=== PATIENT | male | born 1955 | race Caucasian/White ===

== ENCOUNTER 2018-04-15 17:22 | Emergency (ER) | payer BC ==
[2018-04-15 17:49] VITALS: BP 156/82
--- NOTE | 2018-04-15 17:49 | UC ---
Dental HPI - HPI Summary HPI Summary: 62 yo male presents with dental pain. He tells me that over the past 2-3 months he has been trying to "handle" a dental infection on his left lower gum. Each time it gets an abscess he will take clindamycin with good relief. He saw his dentist 2 days ago and she put a temporary cap on the tooth with hopes that the infection would clear for her to put a permanent cap on. Since that time he has developed increased pain, swelling, and drainage from around the tooth. Is currently taking clindamycin. Denies fever, chills. Is able to eat and drink, but does have significant pain. - History of Current Complaint Chief Complaint: UCDentalProblem Stated Complaint: DENTAL COMPLAINT Time Seen by Provider: 04/15/18 17:49 Hx Obtained From: Patient Onset/Duration: Gradual Onset Severity: Severe Pain Intensity: 9 Pain Scale Used: 0-10 Numeric - Allergies/Home Medications Allergies/Adverse Reactions: Allergies Allergy/AdvReac Type Severity Reaction Status Date / Time No Known Allergies Allergy Verified 04/15/18 17:50 Home Medications: Home Medications Acetaminophen [Acetaminophen Extra Strength] 1,000 mg PO Q4HR PRN 04/15/18 [ History Confirmed 04/15/18] Clindamycin Cap(NF) [Clindamycin Cap 300 mg Cap(NF)] 300 mg PO TID 04/15/18 [ History Confirmed 04/15/18] Ibuprofen TAB* [Motrin TAB* 800 MG] 800 mg PO Q6H PRN 04/15/18 [History Confirmed 04/15/18] PMH/Surg Hx/FS Hx/Imm Hx Endocrine History: Hypothyroidism Cardiovascular History: Hypertension - Surgical History Surgical History: Yes Surgery Procedure, Year, and Place: thyroidectomy - Family History Known Family History: Positive: Hypertension - Social History Occupation: Employed Full-time Lives: With Family Alcohol Use: Daily Alcohol Amount: beer Substance Use Type: None Smoking Status (MU): Never Smoked Tobacco Review of Systems Constitutional: Negative Skin: Negative Eyes: Negative ENT: Dental Pain Respiratory: Negative Cardiovascular: Negative Neurovascular: Negative Neurological: Negative Psychological: Negative All Other Systems Reviewed And Are Negative: Yes Physical Exam - Summary Physical Exam Summary: GENERAL: NAD. WDWN. No pain distress. SKIN: No rashes, sores, lesions, or open wounds. HEENT: Head: AT/NC Nose: Nasal mucosa pink and moist. NTTP maxillary and frontal sinus. Throat: Posterior oropharynx without exudates, erythema, or tonsillar enlargement. Uvula midline. NECK: Supple. Nontender. No lymphadenopathy. CHEST: CTAB. No r/r/w. No accessory muscle use. Breathing comfortably and in no distress. CV: RRR. Without m/r/g. Pulses intact. Brisk cap refill. NEURO: Alert. CN II-XII grossly intact. PSYCH: Age appropriate behavior. Triage Information Reviewed: Yes Vital Signs: Initial Vital Signs Temp 98.9 F 04/15/18 17:36 Pulse 53 04/15/18 17:36 Resp 18 04/15/18 17:36 BP 156/82 04/15/18 17:36 Pulse Ox 100 04/15/18 17:36 Dental: Positive: Percussion Tenderness @ - Tooth 21, 22, 23, Abscess @ - Tooth 21, 22, 23, Bleeding - Tooth 21 Dental Complaint Course/Dx - Course Course Of Treatment: iSTOP: Reference #: [id number]. Dental abscess gum line Tooth 21, 22, 23. Continue clindamycin. Rx for tramadol and keep f/u with his dentist in 2 days. - Differential Dx/Diagnosis Provider Diagnoses: Dental abscess Discharge - Sign-Out/Discharge Documenting (check all that apply): Discharge/Admit/Transfer - Discharge Plan Condition: Stable Disposition: HOME Prescriptions: traMADol TAB* [Ultram*] 50 mg PO Q8H PRN #9 tab MDD 3 PRN Reason: Pain Patient Education Materials: Dental Abscess (ED) Referrals: Darlin Dickinson [Primary Care Provider] - Additional Instructions: If you develop a fever, shortness of breath, chest pain, new or worsening symptoms - please call your PCP or go to the ED. Your blood pressure was high at todays visit. Please see your primary provider within 4 weeks for recheck and re-evaluation. 1) Please continue taking your Clindamycin and follow up with your dentist on in 2 days - Billing Disposition and Condition Condition: STABLE Disposition: HOME
[2018-04-15] MEDS ORDERED: traMADol TAB* 50 MG PO ONE (18:07)
== END 2018-04-15 18:22 | disposition home or self-care (01) ==
LOC: UCCORT 17:22
DX: K04.7 Periapical abscess without sinus (principal); I10 Essential (primary) hypertension
CPT/HCPCS: 99213; A9270-GY; G0463

== ENCOUNTER 2019-05-29 10:04 | Emergency (ER) | payer BC ==
[2019-05-29 10:24] VITALS: BP 105/67
--- NOTE | 2019-05-29 10:40 | UC ---
UC General HPI - HPI Summary HPI Summary: L ear pain x 1 week. no uri, fever or drainage. has been using otc tx's. has been swimming. - History of Current Complaint Chief Complaint: UCEar Stated Complaint: LEFT EAR CONCERN Time Seen by Provider: 05/29/19 10:21 Hx Obtained From: Patient Timing: Constant Pain Intensity: 4 Associated Signs & Symptoms: Negative: Fever, Headache - Allergy/Home Medications Allergies/Adverse Reactions: Allergies Allergy/AdvReac Type Severity Reaction Status Date / Time No Known Allergies Allergy Verified 05/29/19 10:19 Home Medications: Home Medications Atorvastatin* [Lipitor*] 20 mg PO QPM 05/29/19 [History Confirmed 05/29/19] Hydrochlorothiazide TAB* [Hydrodiuril TAB*] 25 mg PO QPM 05/29/19 [History Confirmed 05/29/19] Levothyroxine TAB* [Synthroid TAB*] 100 mcg PO DAILY 05/29/19 [History Confirmed 05/29/19] Lisinopril TAB* [Prinivil TAB*] 20 mg PO QAM 05/29/19 [History Confirmed ] Nadolol TAB* [Corgard TAB*] 20 mg PO DAILY 05/29/19 [History Confirmed 05/29/19] PMH/Surg Hx/FS Hx/Imm Hx Endocrine History: Thyroid Disease, Dyslipidemia Cardiovascular History: Hypertension - Surgical History Surgical History: Yes Surgery Procedure, Year, and Place: thyroidectomy - Family History Known Family History: Positive: Hypertension - Social History Lives: With Family Alcohol Use: Occasionally Alcohol Amount: beer Substance Use Type: None Smoking Status (MU): Never Smoked Tobacco Review of Systems All Other Systems Reviewed And Are Negative: No Constitutional: Negative: Fever, Chills Skin: Negative: Rash Eyes: Negative: Drainage, Eye Redness ENT: Negative: Sore Throat, Nasal Discharge, Sinus Congestion Neurological: Negative: Headache Physical Exam Triage Information Reviewed: Yes Appearance: Well-Appearing Vital Signs: Initial Vital Signs Temp 98 F 05/29/19 10:21 Pulse 54 05/29/19 10:21 Resp 18 05/29/19 10:21 BP 105/67 05/29/19 10:21 Pulse Ox 100 05/29/19 10:21 Vital Signs Reviewed: Yes Eyes: Positive: Conjunctiva Clear ENT: Positive: Pharynx normal, Other - No auricular adenopathy, mastoid tenderness or auricular tug pain. TM's obscured by cerumen.. Negative: Nasal congestion, Nasal drainage Neck: Positive: Supple Respiratory: Positive: No respiratory distress Musculoskeletal: Positive: ROM Intact Neurological: Positive: Alert Psychological: Positive: Age Appropriate Behavior Skin Exam: Normal Re-Evaluation - Re-Evaluation First Eval Change: Improved - R canal clear and no erythema. L canal clear with erythema. Both TM's are mullins. Course/Dx - Diagnoses Provider Diagnosis: Impacted cerumen of both ears, Otitis externa Discharge - Sign-Out/Discharge Documenting (check all that apply): Patient Departure All imaging exams completed and their final reports reviewed: No Studies - Discharge Plan Condition: Stable Disposition: HOME Prescriptions: Ciproflox/Dexameth OTIC.SUSP* [Ciprodex OTIC.SUSP*] 4 drop .SEE ORDER BID 7 Days #1 btl Patient Education Materials: Otitis Externa (ED), Cerumen Impaction (ED) Referrals: Darlin Dickinson [Primary Care Provider] - 7 Days - Billing Disposition and Condition Condition: STABLE Disposition: Home
== END 2019-05-29 11:01 | disposition home or self-care (01) ==
LOC: UCCORT 10:04
DX: H61.23 Impacted cerumen, bilateral (principal); H60.92 Unspecified otitis externa, left ear; E07.9 Disorder of thyroid, unspecified; E78.5 Hyperlipidemia, unspecified; I10 Essential (primary) hypertension
CPT/HCPCS: 99213; G0463